=== PATIENT | female | born 1985 | race Caucasian/White ===

== ENCOUNTER 2018-03-16 10:53 | Emergency (ER) | payer BC, OTHER ==
[~2018-03-16] VITALS: Ht 175.3 cm; Wt 99.8 kg
[~2018-03-16 10:53] MED LIST: B COMPLEX1 EAC1 PO; BENTYL 20 MG TA20 M1 PO; CELEXA 20 MG TA20 M1 PO; DIPHENHIST50 MG PO; IBUPROFEN 800800 M1 PO; NORCO 5-325 TA1 EACH PO; SAVELLA100 MG PO; SKELAXIN 800 M800 MG PO; VITAMIN D1000 UNI1 PO; VITAMINC500 PO; ZOFRAN 4 MG ORAL4 M1 DIS; ZOFRAN ODT4 MG PO; ZPAK PO
[2018-03-16 11:26] LABS: ABSOLUTE NEUTROPHILS 4.5 thou/uL (1.4-8.2); BASOPHILS 1.1 % (0.0-2.0); EOSINOPHILS 3.8 % (0.0-3.0); HEMATOCRIT 41.8 % (37.0-47.0); HEMOGLOBIN 14.3 gm/dL (12.0-15.0); MCH 30.9 pg (26.0-34.0); MCHC 34.2 g/dL (28.0-37.0); MCV 90.3 fL (80.0-100.0); MONOCYTES 5.9 % (1.0-8.0); PLATELET COUNT 221 thou/uL (150-400); POLYS 56.2 % (36.0-66.0); RBC 4.63 mil/uL (4.20-5.00); RDW 12.3 % (10.5-14.5); WBC 8.1 thou/uL (4.0-11.0)
[2018-03-16 11:31] LABS: CALCIUM 9.3 mg/dL (8.5-10.1); CREATININE 0.9 mg/dL (0.6-1.0); POTASSIUM 3.6 mmol/L (3.5-5.1)
[2018-03-16 11:37] LABS: ALBUMIN 3.4 g/dL (3.4-5.0); TOTAL PROTEIN 6.7 g/dL (6.4-8.2)
[2018-03-16 11:39] LABS: PROTIME 9.6 Seconds (9.3-11.4)
[2018-03-16] MEDS ORDERED: SENNA-DOCUSATE1 EACH PO (15:08)
[2018-03-16] MEDS ORDERED: NORCO 5-325 TA1 EACH PO (15:08)
[2018-03-16 15:21] LABS: URINE BILIRUBIN NEGATIVE (Negative); URINE BLOOD NEGATIVE (Negative); URINE CLARITY CLEAR; URINE COLOR YELLOW; URINE GLUCOSE-RANDOM* NEGATIVE (Negative); URINE KETONES NEGATIVE (Negative); URINE LEUKOCYTES NEGATIVE (Negative); URINE NITRITE NEGATIVE (Negative); URINE PROTEIN (DIPSTICK) NEGATIVE (Negative); URINE SPECIFIC GRAVITY 1.015 (1.005-1.035); URINE UROBILINOGEN 0.2 E.U./dl (0.2-1.0)
[2018-03-16 15:31] LABS: AMP/METHAMP POSITIVE (Negative); BARBITURATES Negative (Negative); BENZODIAZEPINES POSITIVE (Negative); COCAINE Negative (Negative); METHADONE Negative (Negative); OPIATES POSITIVE (Negative); PCP Negative (Negative)
== END 2018-03-16 15:32 | disposition home or self-care (01) ==
LOC: ER 10:53
PROVIDERS: Nurse Practitioner Family
DX: S02.31XA Fracture of orbital floor, right side, initial encounter for closed fracture (principal); S16.1XXA Strain of muscle, fascia and tendon at neck level, initial encounter; F17.210 Nicotine dependence, cigarettes, uncomplicated; Z88.1 Allergy status to other antibiotic agents; Z88.0 Allergy status to penicillin; Z98.890 Other specified postprocedural states; V29.40XA Motorcycle driver injured in collision with unspecified motor vehicles in traffic accident, initial encounter; Y93.89 Activity, other specified; Y92.89 Other specified places as the place of occurrence of the external cause; Y99.8 Other external cause status

== ENCOUNTER 2019-05-26 14:32 | Emergency (ER) | payer OTHER ==
[~2019-05-26] VITALS: Ht 177.8 cm; Wt 90.7 kg
[~2019-05-26 14:32] MED LIST changes: +SENNA-DOCUSATE1 EACH PO
[2019-05-26 16:57] LABS: URINE BILIRUBIN NEGATIVE (Negative); URINE BLOOD 3+ (Negative); URINE CLARITY CLEAR; URINE COLOR YELLOW; URINE GLUCOSE-RANDOM* NEGATIVE (Negative); URINE KETONES NEGATIVE (Negative); URINE LEUKOCYTES-REFLEX NEGATIVE (Negative); URINE PROTEIN (DIPSTICK) NEGATIVE (Negative); URINE SPECIFIC GRAVITY >= 1.030 (1.005-1.035); URINE UROBILINOGEN 0.2 E.U./dl (0.2-1.0)
[2019-05-26 17:07] LABS: URINE NITRITE-REFLEX POSITIVE (Negative)
[2019-05-26 17:18] LABS: SQUAMOUS 4-10 Moderate /LPF (0-3)
[2019-05-26 17:18] LABS: ABSOLUTE NEUTROPHILS 3.7 thou/uL (1.4-8.2); BASOPHILS 0.7 % (0.0-2.0); EOSINOPHILS 4.2 % (0.0-3.0); HEMATOCRIT 41.4 % (37.0-47.0); HEMOGLOBIN 13.6 gm/dL (12.0-15.0); LYMPHOCYTES 38.3 % (24.0-44.0); MCH 30.2 pg (26.0-34.0); MCHC 32.9 g/dL (28.0-37.0); MCV 91.7 fL (80.0-100.0); MONOCYTES 7.5 % (1.0-8.0); POLYS 49.3 % (36.0-66.0); RBC 4.51 mil/uL (4.20-5.00); RDW 12.3 % (10.5-14.5); WBC 7.4 thou/uL (4.0-11.0)
[2019-05-26 17:19] LABS: BACTERIA-REFLEX >30 Many /HPF (None Seen); CASTS None Seen /LPF (None Seen); CRYSTALS None Seen /LPF (None Seen); MUCUS 0-3 Light strn/LPF (None Seen); URINE RBC 0-2 Rare /HPF (0-2); URINE WBC-REFLEX 0-5 Rare /HPF (0-5)
[2019-05-26 17:30] LABS: APTT 28.9 Seconds (24.5-32.8); PROTIME 9.5 Seconds (9.3-11.4)
[2019-05-26 17:31] LABS: CALCIUM 9.1 mg/dL (8.5-10.1); CREATININE 0.8 mg/dL (0.6-1.0); POTASSIUM 3.6 mmol/L (3.5-5.1)
[2019-05-26 17:41] LABS: ALBUMIN 3.4 g/dL (3.4-5.0); TOTAL BILIRUBIN 0.8 mg/dL (<0.1-1.0)
[2019-05-26 17:49] LABS: PLATELET COUNT 259 thou/uL (150-400)
[2019-05-26] MEDS ORDERED: PROVERA10 MG PO (18:45)
[2019-05-26] MEDS ORDERED: NAPROSYN500 MG PO (18:45)
[2019-05-26 19:15] VITALS: BP 128/78
== END 2019-05-26 19:15 | disposition home or self-care (01) ==
LOC: ER 14:32
PROVIDERS: Physician Assistant
DX: N93.9 Abnormal uterine and vaginal bleeding, unspecified (principal); F17.210 Nicotine dependence, cigarettes, uncomplicated; Z98.890 Other specified postprocedural states; Z90.89 Acquired absence of other organs; Z88.0 Allergy status to penicillin; Z88.1 Allergy status to other antibiotic agents

== ENCOUNTER 2020-03-19 08:47 | Emergency (ER) | payer OTHER ==
[~2020-03-19] VITALS: Ht 175.3 cm; Wt 90.7 kg
[~2020-03-19 08:47] MED LIST changes: +NAPROSYN500 MG PO; +PROVERA10 MG PO
[2020-03-19 10:40] VITALS: BP 122/77
== END 2020-03-19 10:40 | disposition home or self-care (01) ==
LOC: ER 08:47
DX: S93.402A Sprain of unspecified ligament of left ankle, initial encounter (principal); F17.210 Nicotine dependence, cigarettes, uncomplicated; Z98.890 Other specified postprocedural states; Z79.899 Other long term (current) drug therapy; Z88.1 Allergy status to other antibiotic agents; Z88.0 Allergy status to penicillin; W01.0XXA Fall on same level from slipping, tripping and stumbling without subsequent striking against object, initial encounter; Y93.89 Activity, other specified; Y92.89 Other specified places as the place of occurrence of the external cause; Y99.8 Other external cause status